=== PATIENT | male | born 1970 | race Caucasian/White ===

== ENCOUNTER 2019-04-09 18:54 | Emergency (ER) | payer OTHER ==
[2019-04-09] MEDS ORDERED: FLUORESCEIN SODIUM 1 MG STRIP OP ONE (18:58)
[2019-04-09] MEDS ORDERED: PROPARACAINE 0.5% 15 ML OPHT DROP ONE (18:58)
[2019-04-09 19:13] VITALS: BP 146/96
[2019-04-09] MEDS ORDERED: OFLOXACIN 0.3% SOLN PREPACK OPHT.BTL TAKEHOME ONE (19:48)
--- NOTE | 2019-04-09 20:02 | EDPHY ---
H & P Time Seen by Provider: 04/09/19 19:07 HPI/ROS: HPI Left eye irritation. 48-year-old male by private vehicle. This patient reports that he started wearing contact lenses recently. He believes that he had his contact lens stuck in his left eye overnight. He states that he irrigated the eye today and is not sure if he got the contact lens out he has had some redness and irritation to the left eye. He denies any changes in vision. No headache. He has not had a fever. No history of ocular trauma. ROS: Constitutional: No fever, no chills. No weakness. Eyes: No discharge. No changes in vision. As above. Skin: No rashes. Neurological: No headache. Past medical history: He denies any significant past medical history. Social history: Nonsmoker. He is here by himself. No alcohol. Physical Exam: General Appearance: Alert, no distress. This patient is responding to questions appropriately and in full sentences. This patient appears well- hydrated and well-nourished. Eyes: Pupils equal and round and reactive to light at 3-2 mm bilaterally, no photophobia. No nystagmus. Examination of the left eye is significant for scleral conjunctival inflammation with some mild inflammation involving the upper and lower lid on the left eye. Xiong lamp exam with fluorescein staining ; no Joseph's sign, evidence of abrasion, ulceration or other abnormality. Slit -lamp exam; no hypopyon, no hyphema, anterior chamber is deep and clear, no cell /flare. The upper and lower lids were everted with no gross evidence of foreign body or retained contact lens. Neurological: Motor sensory function is grossly intact. Cranial nerves are normal. Gait is normal. Skin: Warm and dry, no rashes. Musculoskeletal: Neck is supple and nontender. Extremities are symmetrical. All joints range without pain or impingement. Psychiatric: No agitation. No depression. Database: EKG: Imaging: Procedures: Emergency department course: Triage vital signs reviewed. The patient is mildly hypertensive. Vital signs are otherwise normal. After my evaluation of the patient as noted above I explained that I did not find any retained contact lens or other foreign body. Because he is a contact lens where he was started on ofloxacin drops in the emergency department. I discussed dosing of this medication as well as dosing of ibuprofen for discomfort. I will have him follow up with Ophthalmology tomorrow in clinic for re-evaluation. He is in agreement with this plan. He feels comfortable going home. Return to emergency department precautions were thoroughly reviewed with him. All of his questions were answered. He was discharged from the emergency department in good condition. Differential Diagnosis: The differential diagnosis on this patient includes but is not limited to conjunctivitis, prolonged contact lens use. Corneal abrasion, corneal ulceration, keratitis, uveitis, ocular foreign body, traumatic ocular injury unlikely. This represents a partial list of diagnoses considered. These considerations are based on history, physical exam, past history, reassessment and diagnostic testing. Smoking Status: Never smoked Constitutional: Initial Vital Signs Temperature (C) 36.5 C 04/09/19 19:10 Heart Rate 61 04/09/19 19:10 Respiratory Rate 16 04/09/19 19:10 Blood Pressure 146/96 H 04/09/19 19:10 O2 Sat (%) 95 04/09/19 19:10 O2 Delivery Mode Room Air Allergies/Adverse Reactions: No Known Allergies Allergy (Unverified 04/09/19 19:10) Home Medications: Medication Instructions [facility]ed [facility] 04/09/19 Medical Decision Making - Data Points Medications Given: Discontinued Medications Ofloxacin (Ocuflox 0.3%) 1 drops LEFTEYE Q4HRS SHANE Stop: 05/09/19 21:59 Last Admin: 04/09/19 20:03 Dose: 1 drop Ofloxacin (Ocuflox 0.3% Opht Drops Prepack) 1 btl TAKEHOME EDNOW ONE Stop: 04/09/19 19:49 Last Admin: 04/09/19 20:03 Dose: 1 btl Departure - Departure Disposition: Home, Routine, Self-Care Clinical Impression: Conjunctivitis, Contact lens overwear of left eye Instructions: Ofloxacin (Into the eye), Conjunctivitis (ED) Additional Instructions: Read and follow provided instructions. Follow-up with Ophthalmology, Dr. Chuy Ball or 1 of his partners or assistance tomorrow for re-evaluation as discussed. Call their office at 9:00 a.m. Tomorrow morning. Explain this is for an emergency department follow-up. Take medication as prescribed. Ofloxacin ophthalmic drops: Day 1 and 2, 1-2 drops to the left eye every 2-4 hours while awake and then days 3 through 7, 1-2 drops to the left eye 4 times daily or every 6 hr while awake. Unless changed by program manager transportation. Ibuprofen dosin mg every 6 hours with meals for the next 3 days only. Take only as needed for pain. Return to the emergency department for worsening eye pain, swelling, changes in vision or other serious concerns. Referrals: Chuy Ball MD [Medical Doctor] - As per Instructions
[2019-04-09] MEDS ORDERED: OFLOXACIN 0.3% 5ML OPHT DROPS LEFTEYE SCH (22:00)
== END 2019-04-09 19:50 | disposition home or self-care (01) ==
DX: H10.89 Other conjunctivitis (principal); R03.0 Elevated blood-pressure reading, without diagnosis of hypertension; Z97.3 Presence of spectacles and contact lenses